=== PATIENT | male | born 1965 | race Caucasian/White ===

== ENCOUNTER 2017-04-24 13:16 | Emergency (ER) | payer BC, OTHER ==
[~2017-04-24] VITALS: Ht 172.7 cm; Wt 80.0 kg
[2017-04-24] MEDS ORDERED: LORazepam 2 MG/ML, 1ML ONE (13:48)
[2017-04-24] MEDS ORDERED: ONDANSETRON 2MG/ML, 2ML ONE (13:48)
[2017-04-24] MEDS ORDERED: LEVO100T PO (13:59)
[2017-04-24] MEDS ORDERED: ONDANSETRON 2MG/ML, 2ML IVPush ONE (14:00)
[2017-04-24] MEDS ORDERED: THIAMINE 100MG TABLET PO ONE (14:00)
[2017-04-24] MEDS ORDERED: LORazepam 2 MG/ML, 1ML IVPush ONE (14:00)
[2017-04-24] MEDS ORDERED: SODIUM CHLORIDE 0.9% 1,000ML IVBOLUS ONE ×2 (14:00→14:30)
[2017-04-24] MEDS ORDERED: SODIUM CHLORIDE FLUSH 10ML SYR IVF ONE (14:00)
[2017-04-24 14:11] LABS: ASPARTATE AMINO TRANSFERASE 25 U/L (15-37); BLOOD UREA NITROGEN 8 mg/dL (7-18)
[2017-04-24 14:50] VITALS: BP 141/87
[2017-04-24 14:54] LABS: HEMATOCRIT 48.2 % (39.2-51.8); HEMOGLOBIN 16.5 g/dL (13.7-18.0); WHITE BLOOD COUNT 5.4 x10^3/uL (3.4-10)
== END 2017-04-24 16:32 | disposition home or self-care (01) ==
LOC: ED 14:02
DX: F10.239 Alcohol dependence with withdrawal, unspecified (principal); E03.9 Hypothyroidism, unspecified
CPT/HCPCS: 36415; 80053; 83690; 85025; 93005; 96361; 96374; 96375; 99285; J2060; J2405; J7030

== ENCOUNTER 2017-04-24 20:54 | Emergency (ER) | payer OTHER ==
[~2017-04-24] VITALS: Ht 172.7 cm; Wt 75.0 kg
[~2017-04-24 20:54] MED LIST: LEVO100T PO
[2017-04-24 21:00] VITALS: BP 144/95
[2017-04-24] MEDS ORDERED: NICOTINE 14MG/24 HR PATCH.TD24 ONE (21:57)
[2017-04-24] MEDS ORDERED: NICOTINE 14MG/24 HR PATCH.TD24 TD ONE (22:30)
[2017-04-24] MEDS ORDERED: LORazepam 2 MG/ML, 1ML IM STA (23:24)
[2017-04-24] MEDS ORDERED: LORazepam 2 MG/ML, 1ML ONE (23:27)
== END 2017-04-25 00:45 | disposition left against medical advice (07) ==
LOC: ED 21:20
DX: F10.220 Alcohol dependence with intoxication, uncomplicated (principal); F19.10 Other psychoactive substance abuse, uncomplicated; E03.9 Hypothyroidism, unspecified
CPT/HCPCS: 96372; 99283; J2060

== ENCOUNTER 2018-12-18 17:49 | Emergency (ER) | payer BC ==
[~2018-12-18] VITALS: Ht 172.7 cm; Wt 78.0 kg
[2018-12-18] MEDS ORDERED: ZIPRASIDONE 20 MG INJ IM ONE ×2 (18:19→18:30)
--- NOTE | 2018-12-18 18:27 | NUR ---
BROUGHT IN BY AMBULANCE. SON CONCERNED BECAUSE HE COULD NOT AROUSE HIM WHEN HE GOT HOME. PT HAD TAKEN SOME PAIN MEDICATION AND DRANK VODKA. PT AGITATED AND WANTING TO LEAVE. SON UPSET AND OVERWHELMED AND STEPPED OUT INTO LOCO. ABLE TO PERSUADE PT TO STAY WHILE STAFF MAKE SURE HE IS SAFE. MEDICATED PER ORDERS IN ATTEMPT TO HELP PT RELAX AND BE MORE COOPERATIVE. PT SITTING IN CHAIR, REFUSING TO REMAIN ON MONITOR. PT ABLE TO STAND AND USE URINAL WITHOUT ASSISTANCE. PT WHISTLING AND SINGING UNDER BREATH
[2018-12-18 18:35] LABS: BASOPHILS # (AUTO) 0.03 x10^3/uL (0-0.1); BASOPHILS % (AUTO) 1 % (0-1); EOSINOPHILS # (AUTO) 0.09 x10^3/uL (0-0.4); EOSINOPHILS % (AUTO) 1 % (1-7); LYMPHOCYTES # (AUTO) 1.98 x10^3/uL (1-3.4); LYMPHOCYTES % (AUTO) 30 % (22-44); MD NO; MEAN CORPUSCULAR HEMOGLOBIN 33.4 pg (27.5-34.5); MEAN CORPUSCULAR HGB CONC 34.5 g/dL (33.2-36.2); MEAN CORPUSCULAR VOLUME 96.8 fL (81-97); MEAN PLATELET VOLUME 6.6 fL (7.4-10.4); MONOCYTES # (AUTO) 0.43 x10^3/uL (0.2-0.8); MONOCYTES % (AUTO) 7 % (2-9); NEUTROPHILS # (AUTO) 4.14 x10^3/uL (1.8-6.8); NEUTROPHILS % (AUTO) 62 % (42-75); PLATELET COUNT 326 x10^3/uL (130-400); RED BLOOD COUNT 5.07 x10^6/uL (4.38-5.82); RED CELL DISTRIBUTION WIDTH 14.2 % (9.4-14.8)
--- NOTE | 2018-12-18 18:40 | NUR ---
SON STATES SINCE 2 DAYS AGO [address] [place].
[2018-12-18 18:47] LABS: ALANINE AMINOTRANSFERASE 33 U/L (12-78); ALBUMIN 3.9 g/dL (3.4-5.0); ANION GAP 7 mmol/L (5-15); CALCIUM 8.5 mg/dL (8.5-10.1); CHLORIDE 109 mmol/L (98-107); CREATININE 0.81 mg/dL (0.7-1.3)
[2018-12-18 18:51] LABS: ALKALINE PHOSPHATASE 85 U/L (45-117); BILIRUBIN,TOTAL 0.2 mg/dL (0.2-1.0); TOTAL PROTEIN 7.4 g/dL (6.4-8.2)
[2018-12-18 18:57] LABS: AMPHETAMINE SCREEN, URINE Negative (Negative); BARBITURATE SCREEN, URINE Negative (Negative); BENZODIAZEPINE SCREEN, URINE Negative (Negative); CANNABINOID SCREEN, URINE Negative (Negative); COCAINE SCREEN, URINE Negative (Negative); METHADONE SCREEN, URINE Negative (Negative); OPIATE SCREEN, URINE Positive (Negative)
--- NOTE | 2018-12-18 19:16 | NUR ---
PT IN AND OUT OF BED AND CONTINUE TO ENCOURAGE HIM TO STAY IN [facility]. PT WANTS TO GO HOME, WANTS TO GO OUT AND SMOKE. BECOMING SOMEWHAT QUIETER SINCE MEDICATED PER ORDERS. SON REMAINS IN HALLWAY IN CHAIR.
--- NOTE | 2018-12-18 19:34 | NUR ---
SAMPLE BODY BUILDER AT BEDSIDE SPEAKING WITH SON
[2018-12-18] MEDS ORDERED: LORazepam 1MG TABLET ONE (19:48)
[2018-12-18] MEDS ORDERED: LORazepam 1MG TABLET PO ONE (20:00)
--- NOTE | 2018-12-18 20:07 | NUR ---
PT CONTINUES TO GET IN AND OUT OF BED. MEDICATED WITH ATIVAN. CHARGE MADE AWARE OF SITUATION.
--- NOTE | 2018-12-18 20:10 | NUR ---
PROVIDED APPLESAUCE AND DRINK
--- NOTE | 2018-12-18 20:24 | NUR ---
PT'S SON PROVIDED TELEPHONE NUMBER AND LEFT, SAYING HE WILL RETURN WHEN PT READY TO BE DISHCARGED. PT MOVED TO T1 WITH CURTAIN OPEN TO NURSE'S STATION. PT SLEEPING. REPORT TO DAVIE KAPADIA
--- NOTE | 2018-12-18 20:25 | NUR ---
report received from bridgette garcias.
--- NOTE | 2018-12-18 20:50 | NUR ---
PT WON'T STAY ON GURNEY. PT WALKING IN ROOM, REDIRECTED TO ROOM SEVERAL TIMES.
--- NOTE | 2018-12-18 20:55 | NUR ---
PT'S SON'S NUMBER [phone](HOME)/ [phone](WORK) PT'S GF'S NUMBER [phone]
--- NOTE | 2018-12-18 21:42 | NUR ---
flocielo rn, redirected pt to bed, pt standing in room with slightly unsteady gait, gave pt snack and po fluids. pt agreed to sit in bed and verblized understanding. pt a/ox4 now.
--- NOTE | 2018-12-18 22:13 | NUR ---
PTS SON HAS ARRIVED AND WOULD LIKE TO TAKE THE PT HOME. PT AMBULATORY.
[2018-12-18 22:15] VITALS: BP 159/88
== END 2018-12-18 22:17 | disposition home or self-care (01) ==
LOC: ED 19:08
DX: F10.220 Alcohol dependence with intoxication, uncomplicated (principal); F17.200 Nicotine dependence, unspecified, uncomplicated; E03.9 Hypothyroidism, unspecified; I10 Essential (primary) hypertension
CPT/HCPCS: 36415; 80053; 80307; 83735; 85025; 96372; 99283; J3486